=== PATIENT | female | born 1980 | race African-American/Black ===

== ENCOUNTER 2017-09-06 12:17 | Emergency (ER) | payer OTHER ==
[~2017-09-06] VITALS: Ht 152.4 cm; Wt 46.0 kg
[2017-09-06] MEDS ORDERED: ACETAMINOPHEN 325MG TABLET PO ONE (12:45)
[2017-09-06] MEDS ORDERED: ACETAMINOPHEN 325MG TABLET ONE (12:57)
[2017-09-06 13:19] LABS: BASOPHILS % 1.4 % (0.0-2.0); EOSINOPHILS % 3.8 % (0.0-5.0); HEMATOCRIT. 36.1 % (36.0-48.0); HEMOGLOBIN. 11.8 g/dL (12.0-16.0); LYMPHOCYTES % 30.5 % (20.0-50.0); MEAN CORPUSCULAR HEMOGLOBIN 28.8 pg (28.0-32.0); MEAN CORPUSCULAR VOLUME 88.3 fL (81.0-99.0); MEAN PLATELET VOLUME 7.8 fl (7.4-10.4); MONOCYTES % 7.9 % (2.0-8.0); NEUTROPHILS % 56.4 % (40.0-76.0); PLATELET 454 x1000/uL (130-400); RED BLOOD CELL COUNT 4.09 mill/uL (4.2-5.4); RED CELL DISTRIBUTION WIDTH 19.5 % (11.6-14.6)
[2017-09-06 13:21] LABS: CHLORIDE 111 mEq/L (98-107)
[2017-09-06 13:23] LABS: PROTHROMBIN TIME 10.2 sec (9.4-11.6)
[2017-09-06 13:53] LABS: CLARITY URINE TURBID (CLEAR); COLOR URINE YELLOW (YELLOW); KETONES URINE NEGATIVE (NEGATIVE); LEUKOCYTE ESTERASE URINE 3+ (NEGATIVE); NITRITE URINE POSITIVE (NEGATIVE); OCCULT BLOOD URINE 2+ (NEGATIVE); PH URINE >=9.0 (4.5-8.0); PROTEIN URINE 2+ (NEGATIVE); SPECIFIC GRAVITY URINE 1.015 (1.005-1.030); UROBILINOGEN URINE 0.2 E.U./dL (0.2-1.0)
[2017-09-06] MEDS ORDERED: LIDOCAINE HCL 1% 20ML VIAL (Pyxis) INJ INFIL ONE (19:30)
[2017-09-06] MEDS ORDERED: CEFTRIAXONE SODIUM 1 G/VIAL IM ONE (19:30)
[2017-09-06 19:45] VITALS: BP 132/86
[2017-09-06] MEDS ORDERED: LIDOCAINE HCL/PF 1% 10 MG/ML 5ML VIAL IJ NR (19:45)
== END 2017-09-06 20:11 | disposition home or self-care (01) ==
LOC: ER 12:17
DX: N39.0 Urinary tract infection, site not specified (principal); N13.30 Unspecified hydronephrosis; F17.200 Nicotine dependence, unspecified, uncomplicated; Z87.442 Personal history of urinary calculi
CPT/HCPCS: 36415; 74176; 80053; 81003; 81025; 83690; 85025; 85610; 87077; 87086; 96372; 99285; J0696; J3490; Z7610

== ENCOUNTER 2023-10-02 08:51 | Emergency (ER) | payer OTHER ==
[~2023-10-02] VITALS: Ht 165.1 cm; Wt 64.0 kg
[2023-10-02 08:52] VITALS: O2SAT 99
[2023-10-02] MEDS: HYDRALAZINE 20MG/ML VIAL IV NR (09:23)
[2023-10-02] MEDS: SODIUM CHLORIDE 0.9% 1,000 ML IV ONE (09:28)
[2023-10-02 09:30] LABS: EOSINOPHILS % 7.3 % (0.0-5.0); HEMATOCRIT. 38.4 % (36.0-48.0); HEMOGLOBIN. 12.8 g/dL (12.0-16.0); MEAN CORPUSCULAR HEMOGLOBIN 31.5 pg (28.0-32.0); MEAN CORPUSCULAR HGB CONC 33.2 g/dL (31.0-37.0); MEAN CORPUSCULAR VOLUME 94.9 fL (81.0-99.0); MONOCYTES % 9.2 % (2.0-8.0); NEUTROPHILS % 38.5 % (40.0-76.0); PLATELET 210 x1000/uL (130-400); RED BLOOD CELL COUNT 4.05 mill/uL (4.2-5.4); RED CELL DISTRIBUTION WIDTH 16.5 % (11.6-14.6)
[2023-10-02 09:34] LABS: CARBON DIOXIDE 21 mEq/L (21-32); CHLORIDE 112 mEq/L (98-107); POTASSIUM 4.3 mEq/L (3.5-5.1); SODIUM 136 mEq/L (136-145)
[2023-10-02 09:35] LABS: CALCIUM 8.9 mg/dL (8.7-10.4)
[2023-10-02 09:40] LABS: CREATININE 0.8 mg/dL (0.6-1.0); GLUCOSE 95 mg/dL (70-105); UREA NITROGEN BLOOD 12 mg/dL (9-23)
[2023-10-02 09:41] LABS: ALANINE AMINOTRANSFERASE 34 IU/L (10-49)
[2023-10-02 09:42] LABS: ASPARTATE AMINOTRANSFERASE 33 IU/L (<34); BILIRUBIN TOTAL 0.3 mg/dL (0.1-1.0); PROTEIN TOTAL 6.4 g/dL (6.0-8.3)
[2023-10-02 09:45] LABS: INR 0.9; PROTHROMBIN TIME 10.3 sec (9.6-11.0)
[2023-10-02] MEDS ORDERED: CLON-493 MT (10:13)
[2023-10-02 10:15] VITALS: BP 157/98; PULSE 65; RESP 17; TEMP 98.4
[2023-10-02] MEDS: CLONIDINE 0.1MG TABLET PO NR (10:26)
[2023-10-02 10:44] LABS: BILIRUBIN DIRECT < 0.1 mg/dL (<=3.0)
== END 2023-10-02 10:45 | disposition home or self-care (01) ==
LOC: ER 08:51
DX: R04.0 Epistaxis (principal); R42 Dizziness and giddiness; F32.9 Major depressive disorder, single episode, unspecified; I10 Essential (primary) hypertension; F12.10 Cannabis abuse, uncomplicated; N28.9 Disorder of kidney and ureter, unspecified; Z98.890 Other specified postprocedural states
CPT/HCPCS: 80076; 80048; 82962; 85025; 85610; 36415; 96361; 96374; 99283; J0360; Z7610

== ENCOUNTER 2023-12-03 18:09 | Emergency (ER) | payer OTHER ==
[~2023-12-03] VITALS: Ht 162.6 cm; Wt 59.0 kg
[~2023-12-03 18:09] MED LIST: CLON-493 MT
[2023-12-03 18:24] VITALS: BP 176/102; PULSE 102; RESP 14; TEMP 98.4; O2SAT 99
[2023-12-03] MEDS ORDERED: ACETAMINOPHEN 325MG TABLET PO ONE (19:00)
[2023-12-03] MEDS ORDERED: LIDOCAINE HCL/PF 1% 10 MG/ML 5ML VIAL INFIL ONE (19:00)
[2023-12-03] MEDS ORDERED: BACITRACIN ZINC OINT UDPKT TOP ONE (19:00)
[2023-12-03] MEDS ORDERED: TETANUS, DIPHTHERIA, PERTUSSIS VAC/PF 0.5ML (>10YR OLD) IM ONE (19:00)
== END 2023-12-03 19:24 | disposition home or self-care (01) ==
LOC: ER 18:09
DX: S01.81XA Laceration without foreign body of other part of head, initial encounter (principal); I10 Essential (primary) hypertension; Y08.89XA Assault by other specified means, initial encounter; Y93.89 Activity, other specified; Y92.89 Other specified places as the place of occurrence of the external cause; Y99.8 Other external cause status
CPT/HCPCS: 99283; J3490

== ENCOUNTER 2024-02-28 08:20 | Emergency (ER) | payer OTHER ==
[~2024-02-28] VITALS: Ht 157.5 cm; Wt 59.0 kg
[2024-02-28 08:21] VITALS: BP 150/95; PULSE 88; RESP 22; TEMP 98.6; O2SAT 100
[2024-02-28 10:20] LABS: CLARITY URINE CLOUDY (CLEAR); COLOR URINE YELLOW (YELLOW); GLUCOSE URINE 1+ (NEGATIVE); KETONES URINE 2+ (NEGATIVE); LEUKOCYTE ESTERASE URINE NEGATIVE (NEGATIVE); NITRITE URINE NEGATIVE (NEGATIVE); OCCULT BLOOD URINE NEGATIVE (NEGATIVE); PROTEIN URINE TRACE (NEGATIVE); SPECIFIC GRAVITY URINE 1.017 (1.005-1.030); UROBILINOGEN URINE 0.2 E.U./dL (0.2-1.0)
[2024-02-28 10:57] LABS: SQUAMOUS EPITHELIAL CELL URINE 3+ /lpf (RARE/1+)
[2024-02-28 10:58] LABS: BACTERIA URINE 2+
[2024-02-28 11:00] LABS: RBC URINE NONE SEEN /hpf (0-2); WBC URINE 0-2 /hpf (0-2)
[2024-02-28 11:26] LABS: BASOPHILS % 0.5 % (0.0-2.0); HEMATOCRIT. 44.3 % (36.0-48.0); HEMOGLOBIN. 14.6 g/dL (12.0-16.0); LYMPHOCYTES % 14.1 % (20.0-50.0); MEAN CORPUSCULAR HEMOGLOBIN 31.8 pg (28.0-32.0); MEAN CORPUSCULAR VOLUME 96.3 fL (81.0-99.0); MEAN PLATELET VOLUME 8.9 fl (7.4-10.4); MONOCYTES % 4.8 % (2.0-8.0); NEUTROPHILS % 80.6 % (40.0-76.0); PLATELET 262 x1000/uL (130-400); RED BLOOD CELL COUNT 4.61 mill/uL (4.2-5.4); RED CELL DISTRIBUTION WIDTH 14.4 % (11.6-14.6); WHITE BLOOD COUNT 13.2 x1000/uL (4.5-11.0)
[2024-02-28 11:34] LABS: CARBON DIOXIDE 22 mEq/L (21-32); CHLORIDE 104 mEq/L (98-107); POTASSIUM 4.7 mEq/L (3.5-5.1); SODIUM 138 mEq/L (136-145)
[2024-02-28 11:35] LABS: CALCIUM 10.1 mg/dL (8.7-10.4)
[2024-02-28 11:39] LABS: CREATININE 0.9 mg/dL (0.6-1.0); GLUCOSE 54 mg/dL (70-105)
[2024-02-28 11:40] LABS: UREA NITROGEN BLOOD 16 mg/dL (9-23)
[2024-02-28 11:41] LABS: ALANINE AMINOTRANSFERASE 64 IU/L (10-49); ASPARTATE AMINOTRANSFERASE 50 IU/L (<34)
[2024-02-28 11:42] LABS: ALBUMIN 4.7 g/dL (3.2-4.8); BILIRUBIN TOTAL 0.4 mg/dL (0.1-1.0); PROTEIN TOTAL 7.9 g/dL (6.0-8.3)
[2024-02-28 12:19] LABS: TROPONIN I HIGH SENSITIVITY < 4 ng/L (3.0-34)
== END 2024-02-28 15:34 | disposition home or self-care (01) ==
LOC: ER 08:31
DX: F41.9 Anxiety disorder, unspecified (principal); I10 Essential (primary) hypertension; F12.90 Cannabis use, unspecified, uncomplicated; F10.20 Alcohol dependence, uncomplicated; Z59.00 Homelessness unspecified; Z86.73 Personal history of transient ischemic attack (TIA), and cerebral infarction without residual deficits; Z98.890 Other specified postprocedural states; Y90.9 Presence of alcohol in blood, level not specified
CPT/HCPCS: 36415; 80053; 81003; 81025; 82962; 84484; 85025; 93005; 99284